=== PATIENT | male | born 1950 | race Caucasian/White ===

== ENCOUNTER 2019-06-09 08:46 | Outpatient (CLI) | payer OTHER, SELFPAY ==
--- NOTE | ~2019-06-09 | MMUS_ITS ---
EXAMINATION: MM diagnostic mammo BI, US breast LT complete HISTORY: Gynecomastia. Palpable breast abnormality. TECHNIQUE: Additional 3-D tomosynthesis images of the left breast were performed and synthetic 2-D im ages were generated. Comparison right MLO view performed. CAD analysis was submitted and interpreted. High resolution left breast ultrasound was performed. COMPARISON: None FINDINGS: MAMMOGRAPHIC FINDINGS: Breast composed of scattered areas of fibroglandular density. There is a focal asymmetry laterally in the left breast on CC view which is not confirmed on MLO view. There is bilateral asymmetric gynecom astia, left greater than right. ULTRASOUND: Normal heterogeneous echotexture in the left breast without focal mass. IMPRESSION: 1. Focal asymmetry laterally in the left breast near the areola on CC view only, without sonographic correlate, most likely benign. 2. Bilateral asymmetric gynecomastia, left greater than right. BI-RADS CATEGORY 3-PROBABLY BENIGN FINDING RECOMMENDATION: 6 month follow mammogram recommended. Reviewed, dictated and finalized at location [facility]. IMPRESSION: 1. Focal asymmetry laterally in the left breast near the areola on CC view only , without sonographic correlate, most likely benign. 2. Bilateral asymmetric gynecomastia, left greater than right. BI-RADS CATEGORY 3-PROBABLY BENIGN FINDING RECOMMENDATION: 6 month follow mammogram recommended.
== END 2019-06-09 08:47 | disposition home or self-care (01) ==
PROVIDERS: PCP Family Medicine; Visit Provider Family Medicine
DX: N62 Hypertrophy of breast (principal)
CPT/HCPCS: 76641; 77066

== ENCOUNTER 2021-11-27 08:41 | Outpatient (CLI) | payer MEDICARE, SELFPAY ==
--- NOTE | 2021-11-27 08:50 | EST_ITS ---
Patient Info Name: Pedrito Junior Age: 71 years : 1950 Gender: Male Ht: 73 in Wt: 225 lbs BSA: 2.31 m2 Technical Quality: Good Exam Date: 11/27/2021 9:09 AM Exam Location: [place] Patient Status: Outpatient Admit Date: 11/27/2021 Staff Ordering Physician: Nuzhat, Geovanny ROJO Attending Provider: Prudence Coleman NMAA Exam Type: CA stress test treadmill Study Info A treadmill exercise stress test was performed. History/Risk Factors Family History: Coronary Artery Disease History/Risk Factors Malignancy. Summary 1. 1. Negative Geovanny exercise stress test for ischemic ST changes by ECG criteria. 2. 2. Good functional capacity, achieving 8.9 METs of workload. 3. 3. Baseline hypertension with hypertensive response to exercise. 4. 4. Appropriate HR response to exercise. 5. 5. Appropriate HR recovery at 1 minute post exercise. 6. 6. No imaging with stress testing. Protocol: Geovanny Stress ECG Details Stage: REST Duration (min): 2 min : 5 sec Speed (mph): 0.0 Grade (%): 0 HR (bpm): 65 SBP (mmHg): 148 DBP (mmHg): 90 METS: --- Stage: REST Duration (min): 6 min : 59 sec Speed (mph): 0.0 Grade (%): 0 HR (bpm): 67 SBP (mmHg): 148 DBP (mmHg): 90 METS: --- Stage: STAGE 1 Duration (min): 1 min : 0 sec Speed (mph): 1.7 Grade (%): 10 HR (bpm): 88 SBP (mmHg): 148 DBP (mmHg): 90 METS: --- Stage: STAGE 1 Duration (min): 2 min : 0 sec Speed (mph): 1.7 Grade (%): 10 HR (bpm): 96 SBP (mmHg): 148 DBP (mmHg): 90 METS: --- Stage: STAGE 1 Duration (min): 3 min : 0 sec Speed (mph): 1.7 Grade (%): 10 HR (bpm): 100 SBP (mmHg): 168 DBP (mmHg): 79 METS: --- Stage: STAGE 2 Duration (min): 1 min : 0 sec Speed (mph): 2.5 Grade (%): 12 HR (bpm): 112 SBP (mmHg): 168 DBP (mmHg): 79 METS: --- Stage: STAGE 2 Duration (min): 2 min : 0 sec Speed (mph): 2.5 Grade (%): 12 HR (bpm): 123 SBP (mmHg): 168 DBP (mmHg): 79 METS: --- Stage: STAGE 2 Duration (min): 3 min : 0 sec Speed (mph): 2.5 Grade (%): 12 HR (bpm): 133 SBP (mmHg): 254 DBP (mmHg): 99 METS: --- Stage: STAGE 3 Duration (min): 1 min : 0 sec Speed (mph): 3.4 Grade (%): 14 HR (bpm): 142 SBP (mmHg): 254 DBP (mmHg): 99 METS: --- Stage: STAGE 3 Duration (min): 1 min : 2 sec Speed (mph): 3.4 Grade (%): 14 HR (bpm): 143 SBP (mmHg): 254 DBP (mmHg): 99 METS: --- Stage: RECOVERY Duration (min): 0 min : 57 sec Speed (mph): 0.0 Grade (%): 0 HR (bpm): 121 SBP (mmHg): 254 DBP (mmHg): 99 METS: --- Stage: RECOVERY Duration (min): 1 min : 57 sec Speed (mph): 0.0 Grade (%): 0 HR (bpm): 110 SBP (mmHg): 239 DBP (mmHg): 95 METS: --- Stage: RECOVERY Duration (min): 2 min
== END 2021-11-27 08:42 | disposition home or self-care (01) ==
LOC: CHSCARD 08:43
PROVIDERS: PCP Family Medicine; Visit Provider Family Medicine
DX: R53.83 Other fatigue (principal); Z82.49 Family history of ischemic heart disease and other diseases of the circulatory system
CPT/HCPCS: 93017

== ENCOUNTER 2023-03-20 08:53 | Outpatient (CLI) | payer MEDICARE, SELFPAY ==
--- NOTE | ~2023-03-20 | CT_ITS ---
CT of the Abdomen and Pelvis: Indication: Abdominal pain Technique: 2.5 mm axial scans were obtained through the abdomen and pelvis following intravenous adm inistration of 100 cc of Omnipaque 350. Dose reduction technique was used on this scan by utilizing a utomated exposure control and iterative reconstruction technique. The dose-length product (DLP) was 9 29.69 mGy-cm. Findings: Scans through the lung bases are unremarkable. There are small probable hepatic cysts present. The spleen, pancreas, adrenals and kidneys are within normal limits. Probable tiny gallstone present. There are atherosclerotic calcifications of the aort a. No lymphadenopathy. No bowel obstruction or bowel wall thickening. There is no evidence to suggest acute appendicitis. Images through the pelvis were performed. Urinary bladder unremarkable. Patient appears to be status post prostatectomy. No pelvic mass seen. No ascites. Impression: No acute abnormality seen. Probable tiny gallstone. Reviewed, dictated and finalized at [facility]. D CLERK Impression: No acute abnormality seen. Probable tiny gallstone.
[2023-03-20 09:15] LABS: Estimated Glomerular Filt Rate > 60
== END 2023-03-20 08:54 | disposition home or self-care (01) ==
PROVIDERS: PCP Family Medicine; Visit Provider Family Medicine
DX: R10.9 Unspecified abdominal pain (principal)
CPT/HCPCS: 74177; Q9967